=== PATIENT | male | born 1945 | race Caucasian/White ===

== ENCOUNTER 2021-10-25 12:58 | Emergency (ER) | payer OTHER ==
[2021-10-25] MEDS ORDERED: NORCO 5-325 TA1 EACH PO (15:39)
[2021-10-25] MEDS ORDERED: BACTRIM DS TAB1 EACH PO (15:39)
[2021-10-25] MEDS ORDERED: CEPHALEXIN500 MG PO (15:39)
== END 2021-10-25 16:08 | disposition home or self-care (01) ==
LOC: FER 12:58
DX: S68.625A Partial traumatic transphalangeal amputation of left ring finger, initial encounter (principal); I10 Essential (primary) hypertension; E11.9 Type 2 diabetes mellitus without complications; Z23 Encounter for immunization; Z79.84 Long term (current) use of oral hypoglycemic drugs; W27.0XXA Contact with workbench tool, initial encounter; Y92.009 Unspecified place in unspecified non-institutional (private) residence as the place of occurrence of the external cause
CPT/HCPCS: 73130; 90471; 90715

== ENCOUNTER 2021-11-01 08:57 | Emergency (ER) | payer OTHER ==
[~2021-11-01 08:57] MED LIST: BACTRIM DS TAB1 EACH PO; CEPHALEXIN500 MG PO; NORCO 5-325 TA1 EACH PO
== END 2021-11-01 12:25 | disposition home or self-care (01) ==
LOC: FER 08:57
DX: S68.615D Complete traumatic transphalangeal amputation of left ring finger, subsequent encounter (principal); E11.9 Type 2 diabetes mellitus without complications; I10 Essential (primary) hypertension; Z79.84 Long term (current) use of oral hypoglycemic drugs; W29.3XXD Contact with powered garden and outdoor hand tools and machinery, subsequent encounter
CPT/HCPCS: 99282